=== PATIENT | male | born 1995 | race Caucasian/White ===

== ENCOUNTER 2021-05-20 13:42 | Inpatient (IN) | payer OTHER ==
[~2021-05-20] VITALS: Ht 157.5 cm; Wt 74.0 kg
[2021-05-20 15:01] LABS: VENOUS HCO3 26.5 MEQ/L (23.0-27.0); VENOUS O2 SATURATION 80.2 % (60.0-80.0); VENOUS PARTIAL PRESSURE CO2 49.6 mmHg (38.0-50.0); VENOUS PARTIAL PRESSURE O2 42.5 mmHg (30.0-50.0); VENOUS PH 7.345 UNITS (7.330-7.430)
[2021-05-20 15:08] LABS: BASO # 0.1 10^3/uL (0.0-0.2); BASO % 0.6 % (0.0-1.0); EOS # 0.1 10^3/uL (0.0-0.5); EOS % 1.3 % (0.0-3.0); HEMOGLOBIN 14.6 g/dl (13.5-17.5); LYMPH # 2.2 10^3/uL (1.5-5.0); LYMPH % 24.7 % (24.0-44.0); MEAN CORPUSCULAR HEMOGLOBIN 31.1 pg (27.0-33.0); MEAN CORPUSCULAR HGB CONC 33.2 g/dl (32.0-36.5); MEAN CORPUSCULAR VOLUME 93.6 fl (80.0-96.0); MONO # 0.5 10^3/uL (0.0-0.8); MONO % 6.1 % (2.0-8.0); NEUTROPHILS % 66.9 % (36.0-66.0); PLATELET COUNT, AUTOMATED 232 10^3/uL (150-450); WHITE BLOOD COUNT 8.9 10^3/uL (4.0-10.0)
[2021-05-20 15:21] LABS: ACETAMINOPHEN LEVEL < 2.0 UG/ML (10.0-30.0); ALBUMIN 4.3 GM/DL (3.2-5.2); ALT/SGPT 32 U/L (12-78); BILIRUBIN,DIRECT < 0.1 MG/DL (0.0-0.2); BILIRUBIN,TOTAL 0.4 MG/DL (0.2-1.0); BLOOD UREA NITROGEN 10 MG/DL (7-18); CALCIUM LEVEL 8.8 MG/DL (8.5-10.1); CARBON DIOXIDE LEVEL 26 MEQ/L (21-32); CHLORIDE LEVEL 109 MEQ/L (98-107); CPK CREATINE PHOSPHOKINASE 217 U/L (39-308); CREATININE FOR GFR 0.81 MG/DL (0.70-1.30); ETHYL ALCOHOL (ETHANOL) < 0.003 % (0.000-0.010); GLOMERULAR FILTRATION RATE > 60.0 (>60); GLUCOSE, FASTING 101 MG/DL (70-100); POTASSIUM SERUM 4.5 MEQ/L (3.5-5.1); SALICYLATE LEVEL 2.7 MG/DL (5.0-30.0); SODIUM LEVEL 140 MEQ/L (136-145); THYROID STIMULATING HORMONE 0.438 uIU/ML (0.358-3.740); TOTAL PROTEIN 7.4 GM/DL (6.4-8.2)
[2021-05-20 15:26] LABS: AMPHETAMINES LEVEL URINE NEGATIVE (NEGATIVE); BARBITURATES URINE NEGATIVE (NEGATIVE); BENZODIAZEPINES URINE NEGATIVE (NEGATIVE); CANNABINOIDS URINE NEGATIVE (NEGATIVE); COCAINE METABOLITE URINE NEGATIVE (NEGATIVE); METHADONE URINE NEGATIVE (NEGATIVE); OPIATES URINE NEGATIVE (NEGATIVE); PHENCYCLIDINE URINE NEGATIVE (NEGATIVE)
--- NOTE | 2021-05-20 20:52 | ECGEPIP ---
[facility] - ED Test Date: 2021-05-20 Pat Name: SERA MORRIS Department: Room: - Gender: Male Nutritionalist: BECKA : 1995 Requested By: LOBO PERDOMO Order Number: [id number] Reading MD: Jocelyn Ocasio Measurements Intervals [place] Rate: 61 P: 19 WA: 166 QRS: 23 QRSD: 90 T: 19 QT: 380 QTc: 382 Interpretive Statements Sinus rhythm with premature atrial complexes No prior Electronically Signed on 05-20-2021 20:52:29 EDT by Jocelyn Ocasio
[2021-05-20] MEDS ORDERED: NICOTINE 21MG/24HR 1 EA TRANSDERMAL TD ONE (21:50)
[2021-05-22] MEDS ORDERED: NICOTINE 21MG/24HR 1 EA TRANSDERMAL TD ONE (01:40)
[2021-05-22] MEDS ORDERED: MAALOX 30 ML SUSP *UDC PO PRN (12:30)
[2021-05-22] MEDS ORDERED: MOM 30ML SUSPENSION UDC PO PRN (12:30)
[2021-05-22] MEDS ORDERED: traZODone 50 MG TAB PO PRN (12:30)
[2021-05-22] MEDS ORDERED: ACETAMINOPHEN TAB 650MG DOSE (2X325MG) PO PRN (12:30)
[2021-05-22 12:32] LABS: RSV AMPLIFICATION NEGATIVE (NEGATIVE)
[2021-05-22 15:16] VITALS: BP 137/68
[2021-05-22] MEDS: NICOTINE 21MG/24HR 1 EA TRANSDERMAL TD SCH (21:00)
[2021-05-23 07:18] VITALS: BP 100/52
[2021-05-23 07:34] VITALS: BP 100/52
[2021-05-23] MEDS: NICOTINE 21MG/24HR 1 EA TRANSDERMAL TD SCH (08:30)
[2021-05-23] MEDS ORDERED: NICO21PAT TD (10:19)
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
[2021-05-24] MEDS ORDERED: NICOTINE 21MG/24HR 1 EA TRANSDERMAL TD PRN (08:00)
== END 2021-05-23 12:00 | disposition home or self-care (01) | DRG 882 ==
LOC: M ED 13:42 → EDBEDREQSVC 05-22 11:48 → M ED INP 05-22 12:29 → M PSY 05-22 15:10
PROVIDERS: ADMIT Psychiatry & Neurology Psychiatry; ATTEND Psychiatry & Neurology Psychiatry
DX: F43.25 Adjustment disorder with mixed disturbance of emotions and conduct (principal); F17.200 Nicotine dependence, unspecified, uncomplicated; Z62.810 Personal history of physical and sexual abuse in childhood; Z63.0 Problems in relationship with spouse or partner

== ENCOUNTER 2024-03-03 15:46 | Inpatient (IN) | payer OTHER ==
[2024-03-03] VITALS (14 sets, daily range): BP systolic 95–149; BP diastolic 52–96; TEMP 97; O2SAT 99–100
[~2024-03-03] VITALS: Ht 167.6 cm; Wt 71.9 kg
[~2024-03-03 15:46] MED LIST: NICO21PAT TD
[2024-03-03 16:09] LABS: BASO # 0.1 10^3/uL (0.0-0.2); BASO % 0.4 % (0.0-1.0); EOS # 0.1 10^3/uL (0.0-0.5); EOS % 0.5 % (0.0-3.0); HEMATOCRIT 42.6 % (42.0-52.0); HEMOGLOBIN 14.8 g/dl (13.5-17.5); LYMPH # 2.3 10^3/uL (1.5-5.0); LYMPH % 10.2 % (24.0-44.0); MEAN CORPUSCULAR HEMOGLOBIN 31.4 pg (27.0-33.0); MEAN CORPUSCULAR HGB CONC 34.7 g/dl (32.0-36.5); MEAN CORPUSCULAR VOLUME 90.3 fl (80.0-96.0); MONO # 1.1 10^3/uL (0.0-0.8); NEUTROPHILS # 18.5 10^3/uL (1.5-8.5); PLATELET COUNT, AUTOMATED 255 10^3/uL (150-450); RED BLOOD COUNT 4.72 10^6/uL (4.30-6.10); WHITE BLOOD COUNT 22.2 10^3/uL (4.0-10.0)
[2024-03-03 16:18] LABS: ABG BASE EXCESS -4.7 (-2.0-2.0); ABG HCO3 20.5 MMOL/L (22.0-26.0); ABG PARTIAL PRESSURE CO2 38.4 mmHg (35.0-45.0); ABG PARTIAL PRESSURE O2 156.2 mmHg (75.0-100.0); ABG STANDARD HCO3 20.7 MMOL/L. (22.0-26.0); ABG TOTAL CO2 21.7 MMOL/L (22.0-29.0); ABG pH (ARTERIAL) 7.345 UNITS (7.350-7.450)
[2024-03-03] MEDS ORDERED: NS 1,000 ML IV SCH (16:30)
[2024-03-03 16:35] LABS: CK-MB VALUE MASS < 1.0 NG/ML (<3.6)
[2024-03-03 16:36] LABS: ETHYL ALCOHOL (ETHANOL) < 0.003 % (0.000-0.010)
[2024-03-03 16:37] LABS: ALBUMIN 4.6 G/DL (3.2-5.2); ALKALINE PHOSPHATASE 93 U/L (46-116); ALT/SGPT 29 U/L (7.0-40); AST/SGOT 16 U/L (<34); BILIRUBIN,DIRECT 0.1 MG/DL (<0.4); BILIRUBIN,TOTAL 0.3 MG/DL (0.3-1.2); BLOOD UREA NITROGEN 12 MG/DL (9-23); CALCIUM LEVEL 8.9 MG/DL (8.5-10.1); CARBON DIOXIDE LEVEL 24 MMOL/L (20-31); CHLORIDE LEVEL 107 MMOL/L (98-107); CPK CREATINE PHOSPHOKINASE 85 U/L (46-171); CREATININE FOR GFR 0.67 MG/DL (0.70-1.30); GLOMERULAR FILTRATION RATE > 60.0 (>60); GLUCOSE, FASTING 152 MG/DL (60-100); MB/CK RELATIVE INDEX 1.17 (< OR =4); POTASSIUM SERUM 3.3 MMOL/L (3.5-5.1); SALICYLATE LEVEL < 3.0 MG/DL (<30); SODIUM LEVEL 138 MMOL/L (136-145); TOTAL PROTEIN 7.4 G/DL (5.7-8.2)
[2024-03-03 16:38] LABS: THYROID STIMULATING HORMONE 2.371 uIU/ML (0.55-4.78)
[2024-03-03] MEDS: MAG SULF 1GM/100ML (MAG RUN) 1 GM in IV 1 EA IV ONE ×3 (16:55→21:10)
[2024-03-03 17:05] LABS: MAGNESIUM LEVEL 1.7 MG/DL (1.8-2.4)
[2024-03-03 17:10] LABS: AMPHETAMINES LEVEL URINE NEGATIVE (NEGATIVE); BARBITURATES URINE NEGATIVE (NEGATIVE); BENZODIAZEPINES URINE NEGATIVE (NEGATIVE); CANNABINOIDS URINE NEGATIVE (NEGATIVE); COCAINE METABOLITE URINE NEGATIVE (NEGATIVE); METHADONE URINE NEGATIVE (NEGATIVE); OPIATES URINE NEGATIVE (NEGATIVE); PHENCYCLIDINE URINE NEGATIVE (NEGATIVE)
[2024-03-03] MEDS ORDERED: MIDAZOLAM INJ 2MG/2ML VIAL As Ordered ONE (17:59)
[2024-03-03] MEDS: MIDAZOLAM 100MG/100ML-0.9%NACL 100 MG in IV 1 EA IV SCH (18:29)
[2024-03-03] MEDS ORDERED: ROCURONIUM BROMIDE 50MG/5ML VIAL IV SCH (18:30)
[2024-03-03] MEDS: ROCURONIUM BROMIDE 50MG/5ML VIAL IV ONE (18:31)
[2024-03-03] MEDS: MIDAZOLAM INJ 2MG/2ML VIAL IV ONE (18:32)
[2024-03-03] MEDS ORDERED: HOME MED LIST COMPLETE! XX SCH (19:00)
[2024-03-03] MEDS ORDERED: PROPOFOL 1,000 MG/100 ML VIAL As Ordered ONE (19:32)
[2024-03-03] MEDS: propofoL 1,000 MG in IV 1 EA IV SCH (19:42)
[2024-03-03] MEDS: MIDAZOLAM 5MG/ML 1ML VIAL IM ONE (19:55)
[2024-03-03] MEDS: CHARCOAL ACTIVATED LIQUID 25GM/120ML BTL PO ONE (21:20)
[2024-03-03] MEDS: KCL 40MEQ in NS 1000ML 1,000 ML IV SCH (21:20)
[2024-03-04] VITALS (61 sets, daily range): BP systolic 97–130; BP diastolic 52–82; TEMP 97.3–99; O2SAT 97–100
[2024-03-04 04:40] LABS: BASO % 0.2 % (0.0-1.0); EOS # 0.1 10^3/uL (0.0-0.5); EOS % 0.8 % (0.0-3.0); HEMATOCRIT 38.2 % (42.0-52.0); LYMPH # 2.3 10^3/uL (1.5-5.0); MEAN CORPUSCULAR HEMOGLOBIN 31.1 pg (27.0-33.0); MEAN CORPUSCULAR VOLUME 91.4 fl (80.0-96.0); MONO # 0.9 10^3/uL (0.0-0.8); MONO % 7.8 % (2.0-8.0); NEUTROPHILS # 7.8 10^3/uL (1.5-8.5); PLATELET COUNT, AUTOMATED 214 10^3/uL (150-450); RED BLOOD COUNT 4.18 10^6/uL (4.30-6.10); WHITE BLOOD COUNT 11.1 10^3/uL (4.0-10.0)
[2024-03-04 05:09] LABS: ALKALINE PHOSPHATASE 83 U/L (46-116); ALT/SGPT 28 U/L (7.0-40); AST/SGOT 20 U/L (<34); BILIRUBIN,TOTAL 0.4 MG/DL (0.3-1.2); BLOOD UREA NITROGEN 8 MG/DL (9-23); CARBON DIOXIDE LEVEL 23 MMOL/L (20-31); CHLORIDE LEVEL 107 MMOL/L (98-107); CPK CREATINE PHOSPHOKINASE 273 U/L (46-171); CREATININE FOR GFR 0.68 MG/DL (0.70-1.30); GLOMERULAR FILTRATION RATE > 60.0 (>60); GLUCOSE, FASTING 98 MG/DL (60-100); MAGNESIUM LEVEL 2.2 MG/DL (1.8-2.4); POTASSIUM SERUM 4.3 MMOL/L (3.5-5.1); SODIUM LEVEL 140 MMOL/L (136-145); TOTAL PROTEIN 6.3 G/DL (5.7-8.2)
[2024-03-04] MEDS: propofoL 1,000 MG in IV 1 EA IV SCH (05:20)
[2024-03-04] MEDS: PANTOPRAZOLE 40MG VIAL IV SCH (09:32)
[2024-03-04] MEDS: ENOXAPARIN 40MG/0.4ML SYRINGE (J1650 PER 10MG) SC SCH (09:32)
[2024-03-05] VITALS (30 sets, daily range): BP systolic 116–155; BP diastolic 59–85; TEMP 98.3–101.4; O2SAT 95–100
[2024-03-05] MEDS: MIDAZOLAM INJ 2MG/2ML VIAL IV PRN (04:14)
[2024-03-05 05:05] LABS: ALBUMIN 3.6 G/DL (3.2-5.2); ALKALINE PHOSPHATASE 79 U/L (46-116); ALT/SGPT 22 U/L (7.0-40); AST/SGOT 17 U/L (<34); BILIRUBIN,TOTAL 0.3 MG/DL (0.3-1.2); BLOOD UREA NITROGEN 9 MG/DL (9-23); CALCIUM LEVEL 8.1 MG/DL (8.5-10.1); CARBON DIOXIDE LEVEL 25 MMOL/L (20-31); CHLORIDE LEVEL 109 MMOL/L (98-107); CPK CREATINE PHOSPHOKINASE 175 U/L (46-171); CREATININE FOR GFR 0.69 MG/DL (0.70-1.30); GLOMERULAR FILTRATION RATE > 60.0 (>60); GLUCOSE, FASTING 81 MG/DL (60-100); POTASSIUM SERUM 3.8 MMOL/L (3.5-5.1); SODIUM LEVEL 141 MMOL/L (136-145)
[2024-03-05] MEDS: ACETAMINOPHEN *IV* 1,000 MG in IV 1 EA IV ONE (09:01)
[2024-03-05] MEDS: ACETAMINOPHEN TAB 650MG DOSE (2X325MG) PO PRN (22:31)
== END 2024-03-05 23:50 | disposition other institution (70) | DRG 917 ==
LOC: EDBD 15:46 → M ED 15:46 → M ED INP 17:19 → M ICU 19:53
PROVIDERS: ADMIT Internal Medicine Pulmonary Disease; ATTEND Internal Medicine Pulmonary Disease
PROC: 0BH17EZ Insertion of Endotracheal Airway into Trachea, Via Natural or Artificial Opening (ICD-10-PCS; principal; 2024-03-03)
PROC: 5A1945Z Respiratory Ventilation, 24-96 Consecutive Hours (ICD-10-PCS; 2024-03-03)
DX: T45.0X2A Poisoning by antiallergic and antiemetic drugs, intentional self-harm, initial encounter (principal); G93.41 Metabolic encephalopathy; T14.91XA Suicide attempt, initial encounter; F43.25 Adjustment disorder with mixed disturbance of emotions and conduct; F17.210 Nicotine dependence, cigarettes, uncomplicated; R00.0 Tachycardia, unspecified; E87.6 Hypokalemia; Z88.0 Allergy status to penicillin; Z91.51 Personal history of suicidal behavior

== ENCOUNTER 2024-03-05 20:23 | Inpatient (IN) | payer OTHER ==
[~2024-03-05] VITALS: Ht 160 cm; Wt 73.0 kg
[2024-03-05] MEDS ORDERED: MAALOX 30 ML SUSP *UDC PO PRN (21:00)
[2024-03-05] MEDS ORDERED: ACETAMINOPHEN TAB 650MG DOSE (2X325MG) PO PRN (21:00)
[2024-03-05] MEDS ORDERED: IBUPROFEN 400MG TAB PO PRN (21:00)
[2024-03-05] MEDS ORDERED: MOM 30ML SUSPENSION UDC PO PRN (21:00)
[2024-03-06 00:42] VITALS: BP 126/78; TEMP 98.4; O2SAT 98
[2024-03-06 05:53] VITALS: BP 120/64; TEMP 98.1; O2SAT 96
[2024-03-06] MEDS: NICOTINE 14 MG/24 HR TRANSDERMAL TD SCH (09:00)
[2024-03-06] MEDS: buPROPion **XL** TABLET 150MG (WELLBUTRIN XL) PO SCH (10:27)
[2024-03-06 16:33] VITALS: BP 135/79; TEMP 98.7; O2SAT 99
[2024-03-07 06:46] VITALS: BP 137/66; TEMP 98.4; O2SAT 98
[2024-03-07 16:34] VITALS: BP 127/64; TEMP 98.2; O2SAT 98
[2024-03-07] MEDS: traZODone 50 MG TAB PO PRN (20:36)
[2024-03-08 06:44] VITALS: BP 116/53; TEMP 98.3; O2SAT 94
[2024-03-08 16:21] VITALS: BP 122/58; TEMP 98; O2SAT 98
[2024-03-08] MEDS: diphenhydrAMINE 25MG CAP PO PRN (20:57)
[2024-03-09 06:31] VITALS: BP 117/60; TEMP 98.7; O2SAT 97
[2024-03-09 17:45] VITALS: BP 115/59; TEMP 98.2; O2SAT 100
[2024-03-10 06:30] VITALS: BP 122/63; TEMP 98.5; O2SAT 98
[2024-03-10] MEDS ORDERED: BUPR150T12 PO (09:22)
[2024-03-10] MEDS ORDERED: NICO14PA TD (09:22)
[2024-03-10] MEDS ORDERED: TRAZ-252 PO (09:22)
== END 2024-03-10 10:00 | disposition home or self-care (01) | DRG 881 ==
LOC: M PSY 03-06 00:21
PROVIDERS: ADMIT Psychiatry & Neurology Psychiatry; ATTEND Psychiatry & Neurology Psychiatry
DX: F32.A Depression, unspecified (principal); R45.851 Suicidal ideations; F43.20 Adjustment disorder, unspecified; Z62.810 Personal history of physical and sexual abuse in childhood; Z63.0 Problems in relationship with spouse or partner; F17.290 Nicotine dependence, other tobacco product, uncomplicated; D72.829 Elevated white blood cell count, unspecified

== ENCOUNTER → 2024-08-18 | Outpatient (REF) | payer OTHER ==
[~2024-08-18] MED LIST changes: +BUPR150T12 PO; +NICO14PA TD; +TRAZ-252 PO
[2024-08-18 14:43] LABS: SEMEN APPEARANCE OPAQUE (OPAQUE); SEMEN VISCOSITY LIQUID (LIQUID); SEMEN VOLUME 1.9 ml (2.0-5.0); SEMEN pH 8.5 (7.0-8.0); WBC CONCENTRATION <=1 M/ml (<=1 M/ml)
== END ==
LOC: M LAB REF 14:17
PROVIDERS: ATTEND General Practice
DX: N46.9 Male infertility, unspecified (principal)